=== PATIENT | male | born 1965 | race Caucasian/White ===

== ENCOUNTER 2025-01-04 10:25 | Inpatient (IN) | payer BC, OTHER ==
[~2025-01-04] VITALS: Ht 165.1 cm; Wt 113.2 kg
--- NOTE | 2025-01-04 10:47 | ECG ---
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
--- NOTE | 2025-01-04 10:49 | ED.PDOC ---
HPI Comments HPI: Poor Historian. HPI: 59y M who presents to the ED via EMS for chief complaint of chest pain. - pt states he has been having chest pain for the past 1 week getting progressively worse and came to the ED today for exacerbation of his pain - pt states he he has been having substernal chest pain, intermittent in nature radiating to the L arm, describing the pain as tingling, with noted exacerbation of his symptoms with exertion and no relieving factors - pt states he took 1x nitro at approx 0930 this AM and states it helped with his pain - pt states he has also been having shortness of breath which started earlier this AM with associated nausea, vomiting diaphoresis and headache but otherwise denies dizziness, fever, cough, chills, or associated symptoms - pt states he did have CA 1x years prior and takes daily ASA - pt states he saw psychological operations officer 1x year ago and states he had abnormal cardiac stress test but does not know if pt was diagnosed with anything - pt in the ED, has stable vitals in the ED with 02 sat of 100% on room air, and BP of 136/83, RR 20, Past Medical History: CA (2015), depression Past Surgical History: tonsillectomy Social History: Denies ETOH, denies smoking, denies drug use. Medications: nitroglycerin, aspirin, metformin, Zoloft Allergies: denies REVIEW OF SYSTEMS: CONSTITUTIONAL: Denies acute: fever, chills, HEAD: Denies acute: headache, photophobia Eyes: Denies acute: Double vision, vision loss, eye pain, eye discharge. EARS: Denies acute: tinnitus, hearing loss, ear discharge, ear pain, THROAT: Denies acute: sore throat, swelling, difficulty swallowing , pain with swallowing, change in voice. NECK: Denies acute: neck pain, neck swelling, stiff neck. HEART: Denies acute : palpitations, LUNGS: Denies acute: , wheezing, cough, hemoptysis ABDOMEN: Denies acute: abdominal pain, diarrhea, melena , hematemesis, hematochezia SKIN: Denies acute: rash, redness, lesions, itchiness. EXTREMITIES: Denies acute: calf pain, weakness, denies pain in extremity. Denies acute: Low back pain. Neuro: Denies acute: focal neurological deficit, motor or sensory focal neurological deficit, tremors, seizure like activity, confusion, dizziness, change in mental status, loss of bowel or bladder function, cauda equina like symptoms. : Denies acute: dysuria, hematuria, flank pain, increase in urinary frequency. PSYCH: Denies acute: hallucination, suicidal ideation, homicidal ideation. PHYSICAL EXAM: General: ---mild-----acute distress, awake and alert. Head: normocephalic, atraumatic. Neck: supple, trachea is midline, no swelling. Throat: Normal phonation. Eyes:, no erythema, no purulent discharge, no proptosis, no icterus. Heart: regular rate, regular rhythm, no significant murmur appreciated. Lungs: no apparent respiratory distress, Able to speak in full sentences. No wheezing, no rhonchi, no crackles. No stridors Clear to auscultation bilaterally. Abdomen: non tender to palpation, non distended, soft, no guarding, no rebound, + bowel sounds. Neuro: Awake, Alert, oriented to name, self, situation, follows commands GCS=15. Speech is normal. Skin: no petechia, no purpura, no cyanosis, non-pale, not jaundice. Lower extremities: --trace- Pitting edema no deformity, no focal swelling, no calf TTP. Makes eye contact. moves all four extremities. Face: no apparent facial droop. ED COURSE: DISCLAIMER: This medical document was created using an electronic medical record system with voice recognition software and computerized dictation system. Although this document has been carefully reviewed, there might still be some phonetic and typographical errors. Occasional wrong-word or "sound-alike" substitutions may have occurred due to the inherent limitations of voice recognition software. These areas are purely typographical due to imperfections of the software programs and do not reflect any compromise in the patient's medical care. Please read the chart carefully and recognize, using context, where these substitutions have occurred. Chief Complaint: Shortness of Breath Time Seen by MD: 10:49 Primary Care Provider: LILY Reviewed Notes: Medications, Allergies Allergies: Coded Allergies: NO KNOWN ALLERGIES (Unverified , 09/18/13) Home Meds Reported Medications Lisinopril (Lisinopril) 20 Mg Tab, 1 TAB PO DAILY 01/04/25 Information Source: Patient Mode of Arrival: Ambulatory Past Medical History PAST MEDICAL HISTORY: HTN Surgical History: Denies all surgeries Family History Family History: Unknown Social History Smoker: Quit Less Than 1 Year Alcohol: Denies ETOH Use Drugs: Denies Drug Use Lives In: Home EKG EKG : Pulse Rate (adult): 72 Marshall: Normal Cardiac Rhythm: NSR Block: None Hypertrophy: None ST: Nonsp Was a procedure done? Was a procedure done?: No X-Ray, Labs, Meds, VS Vital Signs Date Time Temp Pulse Resp B/P (MAP) Pulse Ox O2 Delivery O2 Flow Rate FiO2 01/04/25 11:15 72 01/04/25 10:59 98.1 79 20 136/83 (100) 100 98.1 01/04/25 10:45 72 Lab Test 01/04/25 12:00 01/04/25 11:05 Range/Units Lactic Acid Level 1.7 0.4-2.0 mmol/L Troponin I High Sensitivity 77 *H 54 </=54 ng/L White Blood Count 8.4 4.4-10.8 10^3/uL Red Blood Count 4.66 4.5-5.90 10^6/uL Hemoglobin 14.7 13.5-17.5 g/dL Hematocrit 43.3 41.0-53.0 % Mean Corpuscular Volume 93.0 80.0-100.0 fL Mean Corpuscular Hemoglobin 31.7 28.0-32.0 pg Mean Corpuscular Hemoglobin Concent 34.0 32.0-36.0 g/dL Red Cell Distribution Width 12.6 11.8-14.3 % Platelet Count 306 140-450 10^3/uL Mean Platelet Volume 7.2 6.9-10.8 fL Neutrophils (%) (Auto) 60.4 37.0-80.0 % Lymphocytes (%) (Auto) 29.8 10.0-50.0 % Monocytes (%) (Auto) 7.7 0.0-12.0 % Eosinophils (%) (Auto) 1.7 0.0-7.0 % Basophils (%) (Auto) 0.4 0.0-2.0 % Neutrophils # (Auto) 5.1 1.6-8.6 10 ^3/uL Lymphocytes # (Auto) 2.5 0.4-5.4 10 ^3/uL Monocytes # (Auto) 0.6 0-1.3 10 ^3/uL Eosinophils # (Auto) 0.1 0-0.8 10 ^3/uL Basophils # (Auto) 0 0-0.2 10 ^3/uL Nucleated Red Blood Cells 0.0 % Sodium Level 138 136-145 mmol/L Potassium Level 4.6 3.5-5.1 mmol/L Chloride Level 103 98-107 mmol/L Carbon Dioxide Level 25 20-31 mmol/L Anion Gap 10 5-15 Blood Urea Nitrogen 15 9-23 mg/dL Creatinine 0.67 L 0.700-1.30 mg/dL Glomerular Filtration Rate Calc 106 >90 mL/min BUN/Creatinine Ratio 22.4 H 10.0-20.0 Serum Glucose 100 74-106 mg/dL Hemoglobin A1c 5.8 H <5.7 % A1C Calcium Level 10.2 8.7-10.4 mg/dL Magnesium Level 1.8 1.6-2.6 mg/dL Total Bilirubin 0.5 0.2-1.0 mg/dL Aspartate Amino Transferase (AST) 33 13-40 U/L Alanine Aminotransferase (ALT) 51 H 7-40 U/L Alkaline Phosphatase 52 46-116 U/L B-Type Natriuretic Peptide 59.04 0-100 pg/mL Total Protein 6.9 5.7-8.2 g/dL Albumin 4.8 3.2-4.8 g/dL Thyroid Stimulating Hormone (TSH) 1.12 0.55-4.78 uIU/mL [place] [id number] Ph: [phone] DIAGNOSTIC IMAGING Diagnostic Imaging Report : [id number] Signed PATIENT: MARY JARRETT ACCT: [id number] UNIT: [id number] : 1965 LOC: ER ROOM / BED: / AGE / SEX: 59 / M ADM STATUS: REG ER SERVICE 1046 ORDERING PHYSICIAN: UCHE CELAYA DO PROCEDURE(s): CXRP - CHEST PORTABLE REASON: SOB/CP ORDER NUMBER(s): [id number], ACCESSION NUMBER(s): [id number] CHEST RADIOGRAPH Indication: SOB/CP Technique: Single frontal view of the chest was obtained COMPARISON: None FINDINGS: Lines and Tubes: None Lungs: Clear Pleura: No effusion. No pneumothorax. Cardiomediastinal contours: Unremarkable Bones: Unremarkable IMPRESSION: No acute disease. ATED BY: DEAN ROSS MD DICTATED DATE/TIME: 01/04/25 1144 SIGNED BY: DEAN ROSS MD SIGNED DATE/TIME: 01/04/25 1144 CC: Patient Education/Counseling: Diagnosis, Treatment Family Education/Counseling: No Family Present SEPSIS Sepsis Screen Physician Orders Electrocardigram (01/04/25 11:44) Electrocardigram (01/04/25 13:44) It Project Lead (01/04/25 ) Chest Portable (01/04/25 10:46) Vital Signs Date Time Temp Pulse Resp B/P (MAP) Pulse Ox O2 Delivery O2 Flow Rate FiO2 01/04/25 11:15 72 01/04/25 10:59 98.1 79 20 136/83 (100) 100 98.1 01/04/25 10:45 72 Laboratory Tests Test 01/04/25 11:05 01/04/25 12:00 White Blood Count 8.4 10^3/uL (4.4-10.8) Lactic Acid Level 1.7 mmol/L (0.4-2.0) Departure 1 Departure Time of Disposition: 11:57 Impression: Primary Impression: Chest pain Additional Impression: Dyspnea Disposition: 09 ADMITTED INPATIENT Admit to: [facility] Condition: Guarded Discharged With: Self Critical Care Note Critical Care Time?: No Heart Score Heart Score: Heart Score Response (Comments) Value History Slightly Suspicious 0 EKG Normal 0 Age 45-64 1 Risk Factors 1 or 2 risk factors 1 Total 2 I personally scribed for UCHE CELAYA DO ([email or web address]) on 01/04/25 at 10:49. Maris ctronically submitted by Santo Gottlieb (AFSHAN). I personally scribed for UCHE CELAYA DO ([email or web address]) on 01/04/25 at 11:15. Electronically submitted by Santo Gottlieb (AFSHAN). I personally scribed for UCHE CELAYA DO ([email or web address]) on 01/04/25 at 22:04. Electronically submitted by Santo Gottlieb ([facility] UCHE CELAYA DO Jan 04, 2025 10:49
[2025-01-04 11:38] LABS: Hematocrit 43.3 % (41.0-53.0); Hemoglobin 14.7 g/dL (13.5-17.5); Mean Corpuscular Hemoglobin 31.7 pg (28.0-32.0); Mean Corpuscular Volume 93.0 fL (80.0-100.0); Nucleated Red Blood Cells % 0.0 %
--- NOTE | 2025-01-04 11:46 | DVH ---
CHEST RADIOGRAPH Indication: SOB/CP Technique: Single frontal view of the chest was obtained COMPARISON: None FINDINGS: Lines and Tubes: None Lungs: Clear Pleura: No effusion. No pneumothorax. Cardiomediastinal contours: Unremarkable Bones: Unremarkable IMPRESSION: No acute disease.
[2025-01-04 11:52] LABS: Albumin 4.8 g/dL (3.2-4.8); Alkaline Phosphatase 52 U/L (46-116); Anion Gap 10 (5-15); BUN/Creatinine Ratio 22.4 (10.0-20.0); Bilirubin, Total 0.5 mg/dL (0.2-1.0); Blood Urea Nitrogen 15 mg/dL (9-23); Calcium 10.2 mg/dL (8.7-10.4); Carbon Dioxide 25 mmol/L (20-31); Chloride 103 mmol/L (98-107); Glucose 100 mg/dL (74-106); Potassium 4.6 mmol/L (3.5-5.1); Sodium 138 mmol/L (136-145); Total Protein 6.9 g/dL (5.7-8.2)
[2025-01-04 11:55] LABS: Alanine Aminotransferase 51 U/L (7-40)
[2025-01-04] MEDS ORDERED: LISI20TA56 PO (12:13)
[2025-01-04] MEDS ORDERED: ACETAMINOPHEN 325 MG TAB PO PRN (12:15)
[2025-01-04] MEDS ORDERED: NITROGLYCERIN 0.4 MG SL TAB SL PRN ×2 (12:15)
[2025-01-04] MEDS ORDERED: MORPHINE SULFATE INJ 2 MG/ml SYRG IV PRN (12:15)
[2025-01-04] MEDS ORDERED: MORPHINE SULFATE 4 MG/ML SYR/VIAL IV PRN (12:15)
[2025-01-04] MEDS ORDERED: ONDANSETRON HCL 4 MG/2 ML VIAL IV PRN (12:15)
--- NOTE | 2025-01-04 12:23 | DVHHP2 ---
History of Present Illness Reason for Visit: Chest pain with nausea vomiting jaw pain headache and diaphoresis History of Present Illness Kleber Medina is a 59-year-old male with past medical history of SD in 2015 status post PTCA x1, depression, tonsillectomy, nephritis, and morbid obesity who presents to the ED with chest pain that radiate to his left arm and jaw with nausea, vomiting, headache, and diaphoresis that started to worsen at 930 this morning. 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 He reports that the pain is currently 10/10 heavy and intermittent in nature and has been ongoing for the last 2 weeks. Patient's Isamar is at the chair side. She states that the last time this happened in 2014 his face was flushed red as it is now. Patient denies if there are any triggering or alleviating factors. Patient denies any recent travels, recent sick contacts, recent ingestion of spoiled fo od, recent trauma or injury, abdominal pain, diarrhea, urinary symptoms, lightheadedness, weakness, or dizziness. Patient reports that he is compliant with his medications. Cardiovascular: SD Psych: Depression Past Medical History Nephritis Past Surgical History: Other (PTCA x1 in 2015), Tonsillectomy Family History: Hyperlipidemia, Hypertension, Other (Dad with hypertension, hyperlipidemia, and SD. Mom with heart disease.) Smoke: No ALCOHOL: occassional Drugs: None Lives: with Family Domestic Violence: Neg Review of Systems Constitutional: Yes: Sweats, Other (Headache with jaw pain) Cardiovascular: Chest Pain Gastrointestinal: Nausea, Vomiting Allergies: Coded Allergies: NO KNOWN ALLERGIES (Unverified , 09/18/13) Medications Current Medications Medications Dose Ordered Sig/Jefferson Route Start Time Stop Time Status Last Admin Dose Admin Aspirin 81 mg DAILY PO 01/05/25 10:00 UNV Atorvastatin Calcium 40 mg HS PO 01/04/25 22:00 UNV Morphine Sulfate 2 mg Q30MP PRN IV 01/04/25 12:15 UNV Exam Vital Signs Vital Signs Date Time Temp Pulse Resp B/P (MAP) Pulse Ox O2 Delivery O2 Flow Rate FiO2 01/04/25 11:15 72 01/04/25 10:59 98.1 20 136/83 (100) 100 98.1 General Appearance: Alert, Oriented X3, Cooperative, No acute distress HEENT: Atraumatic, PERRLA, EOMI, Mucous membr. moist/pink Respiratory: Clear to auscultation, Normal air movement Cardiovascular: Regular rate, Normal S1, Normal S2, No murmurs Abdominal: Normal bowel sounds, Soft Extremities: Normal pulses Skin: No significant lesion Neuro: Normal speech, Strength at 5/5 X4 ext, Normal tone, Sensation intact Psych/Mental Status: Mental status NL, Mood NL Labs/Xrays Labs Test 01/04/25 12:00 01/04/25 11:05 Range/Units White Blood Count 8.4 4.4-10.8 10^3/uL Red Blood Count 4.66 4.5-5.90 10^6/uL Hemoglobin 14.7 13.5-17.5 g/dL Hematocrit 43.3 41.0-53.0 % Mean Corpuscular Volume 93.0 80.0-100.0 fL Mean Corpuscular Hemoglobin 31.7 28.0-32.0 pg Mean Corpuscular Hemoglobin Concent 34.0 32.0-36.0 g/dL Red Cell Distribution Width 12.6 11.8-14.3 % Platelet Count 306 140-450 10^3/uL Mean Platelet Volume 7.2 6.9-10.8 fL Neutrophils (%) (Auto) 60.4 37.0-80.0 % Lymphocytes (%) (Auto) 29.8 10.0-50.0 % Monocytes (%) (Auto) 7.7 0.0-12.0 % Eosinophils (%) (Auto) 1.7 0.0-7.0 % Basophils (%) (Auto) 0.4 0.0-2.0 % Neutrophils # (Auto) 5.1 1.6-8.6 10 ^3/uL Lymphocytes # (Auto) 2.5 0.4-5.4 10 ^3/uL Monocytes # (Auto) 0.6 0-1.3 10 ^3/uL Eosinophils # (Auto) 0.1 0-0.8 10 ^3/uL Basophils # (Auto) 0 0-0.2 10 ^3/uL Nucleated Red Blood Cells 0.0 % Sodium Level 138 136-145 mmol/L Potassium Level 4.6 3.5-5.1 mmol/L Chloride Level 103 98-107 mmol/L Carbon Dioxide Level 25 20-31 mmol/L Anion Gap 10 5-15 Blood Urea Nitrogen 15 9-23 mg/dL Creatinine 0.67 L 0.700-1.30 mg/dL Glomerular Filtration Rate Calc 106 >90 mL/min BUN/Creatinine Ratio 22.4 H 10.0-20.0 Serum Glucose 100 74-106 mg/dL Calcium Level 10.2 8.7-10.4 mg/dL Total Bilirubin 0.5 0.2-1.0 mg/dL Aspartate Amino Transferase (AST) 33 13-40 U/L Alanine Aminotransferase (ALT) 51 H 7-40 U/L Alkaline Phosphatase 52 46-116 U/L B-Type Natriuretic Peptide 59.04 0-100 pg/mL Total Protein 6.9 5.7-8.2 g/dL Albumin 4.8 3.2-4.8 g/dL CHEST RADIOGRAPH Indication: SOB/CP Technique: Single frontal view of the chest was obtained COMPARISON: None FINDINGS: Lines and Tubes: None Lungs: Clear Pleura: No effusion. No pneumothorax. Cardiomediastinal contours: Unremarkable Bones: Unremarkable IMPRESSION: No acute disease. SEPSIS Sepsis Screen Date sepsis recognized/suspect: Jan 04, 2025 Time Sepsis recognized/suspect: 103 Recent Procedure: No On Antibiotic Therapy: No Respiratory Rate >20: No Heart Rate >90: No Temp<36 C (96.8 F) or >38.3 C: No SBP <90 or MAP <65 mmHG: No New Acute Mental Status Change: No Is the patient on CPAP, BIPAP,: No Physician Orders Troponin-I Hs (01/04/25 13:44) Troponin-I Hs (01/04/25 11:44) Electrocardigram (01/04/25 11:44) Electrocardigram (01/04/25 13:44) Tufter Operator (01/04/25 ) Urinalysis (01/04/25 10:46) Lactic Acid W/ Reflex Order (01/04/25 10:46) Chest Portable (01/04/25 10:46) Admit (01/04/25 12:10) Code Status (01/04/25 12:10) Vital Signs .PER UNIT PROTOCOL (01/04/25 12:10) Tufter Operator (01/04/25 12:10) Cardiac Diet-2gna,Lofat,Lochol (01/04/25 Lunch) Aspirin Tablet (01/05/25 10:00) Atorvastatin (Lipitor) (01/04/25 22:00) Morphine Sulfate Injection (01/04/25 12:15) Acetaminophen Tablet (Tylenol Tablet) (01/04/25 12:15) Complete Blood Count (01/05/25 04:00) Basic Metabolic Panel (01/05/25 04:00) Magnesium (01/05/25 04:00) Lipid Panel (01/05/25 04:00) Echo 2d Mode Cardiac Dop (01/04/25 12:10) Nitroglycerin Sublingual (Ntrostat Subli (01/04/25 12:15) Ondansetron Hcl (Zofran) (01/04/25 12:15) Electrocardigram (01/05/25 04:00) Troponin-I Hs (01/04/25 12:10) Cardiac Rehabilitation - Outpa (01/04/25 ) Nitroglycerin Sublingual (Ntrostat Subli (01/04/25 12:15) Morphine Sulfate Injection (01/04/25 12:15) Stat Ekg For Chest Pain (01/04/25 12:10) Notify Md Of Changes From Base (01/04/25 12:10) Exhibit Artist For 24 Hours (01/04/25 12:10) Emergency Dysrhythmia Protocol (01/04/25 12:10) Rhythm Strips Once Every Shift (01/04/25 12:10) Oxygen By Nasal Cannula (01/04/25 12:10) Hemoglobin A1c (01/04/25 12:10) * Cardiology Consult (01/04/25 12:10) Thyroid Stimulating Hormone (01/04/25 12:10) Free T4 (Free Thyroxine) (01/04/25 12:10) Urinalysis (01/04/25 12:10) Drug Screen (01/04/25 12:10) Magnesium Sarmad (01/04/25 12:15) Magnesium (01/04/25 12:10) Lisinopril Tablet (Zestril Tablet) (01/05/25 10:00) Vital Signs Date Time Temp Pulse Resp B/P (MAP) Pulse Ox O2 Delivery O2 Flow Rate FiO2 01/04/25 11:15 72 01/04/25 10:59 98.1 79 20 136/83 (100) 100 98.1 01/04/25 10:45 72 Laboratory Tests Test 01/04/25 11:05 01/04/25 12:00 White Blood Count 8.4 10^3/uL (4.4-10.8) Lactic Acid Level Pending Assessment/Plan Assessment/Plan Assessment Chest pain rule out ACS Alcohol use Morbid obesity History of SD in 2015 status post PTCA x1 History of depression History of tonsillectomy History of nephritis Plan Admit to tele Antiemetics Pain management Aspirin + statin Lactic level Troponin noted EKG BNP Chest x-ray Replete lytes Mag level Echo ordered TSH A1c Lipid panel UA UDS Free T4 Diet Home medications reconciled DVT prophylaxis-not indicated patient ambulating PUD prophylaxis-not indicated patient has a history of GERD or GI bleed Discussed plan of care with patient, patient's spouse, and nurse Cardiology consulted due to the history of a stent being placed and current symptoms Counseled patient on lifestyle modifications, diet, and exercise Counseled patient on cessation of alcohol use [id number] Preventive counseling healthy eating habits, physical activity, and regular checkups Plan discussed with: Patient, Spouse My Orders Orders - JOCELYNE REYNA Procedure Category Date Status Time Admit ADMIT 01/04/25 Transmitted 12:10 Code Status CODE 01/04/25 Transmitted 12:10 Vital Signs CARMEN 01/04/25 In Process 12:10 Tufter Operator CARMEN 01/04/25 In Process 12:10 Cardiac DIET 01/04/25 Transmitted Diet-2gna,Lofat,Lochol Lunch Aspirin Tablet PHA 01/05/25 Logged 10:00 Atorvastatin (Lipitor) PHA 01/04/25 Logged 22:00 Morphine Sulfate PHA 01/04/25 Logged Injection 12:15 Acetaminophen Tablet PHA 01/04/25 Transmitted (Tylenol Tablet) 12:15 Complete Blood Count LAB 01/05/25 Verified 04:00 Basic Metabolic Panel LAB 01/05/25 Verified 04:00 Magnesium LAB 01/05/25 Verified 04:00 Lipid Panel LAB 01/05/25 Verified 04:00 Echo 2d Mode Cardiac US 01/04/25 Logged DOP 12:10 Nitroglycerin PHA 01/04/25 Transmitted Sublingual (Ntrostat 12:15 Ondansetron Hcl PHA 01/04/25 Transmitted (Zofran) 12:15 Electrocardigram EKG 01/05/25 Logged 04:00 Troponin-I Hs LAB 01/04/25 Logged 12:10 Cardiac CARMEN 01/04/25 In Process Rehabilitation - Outpa Nitroglycerin PHA 01/04/25 Transmitted Sublingual (Ntrostat 12:15 Morphine Sulfate PHA 01/04/25 Transmitted Injection 12:15 Stat Ekg For Chest [facility] 01/04/25 In Process Pain 12:10 Notify Md Of Changes [facility] 01/04/25 In Process From Base 12:10 Exhibit Artist For [facility] 01/04/25 In Process 24 Hours 12:10 Emergency Dysrhythmia [facility] 01/04/25 In Process Protocol 12:10 Rhythm Strips Once [facility] 01/04/25 In Process Every Shift 12:10 Oxygen By Nasal RT 01/04/25 Transmitted Cannula 12:10 Hemoglobin A1c LAB 01/04/25 Logged 12:10 * Cardiology Consult CONS 01/04/25 Transmitted 12:10 Thyroid Stimulating LAB 01/04/25 Logged Hormone 12:10 Free T4 (Free LAB 01/04/25 Logged Thyroxine) 12:10 Urinalysis LAB 01/04/25 Logged 12:10 Drug Screen LAB 01/04/25 Logged 12:10 Magnesium Sarmad PHA 01/04/25 Transmitted 12:15 Magnesium LAB 01/04/25 Logged 12:10 Lisinopril Tablet PHA 01/05/25 Verified (Zestril Tablet) 10:00 Date of Service: Jan 04, 2025 Billing Provider: JOCELYNE REYNA Common Visit Codes: [id number] INP/OBS CARE (HIGH) Secondary Visit Codes: [id number] COUNSELING IND JOCELYNE REYNA Jan 04, 2025 12:23
[2025-01-04] MEDS: ASPirin-EC 325mg tab PO ONE (14:38)
[2025-01-04 14:42] VITALS: PULSE 83; RESP 20; O2SAT 95
[2025-01-04 15:35] VITALS: BP 127/75; PULSE 73; RESP 17; TEMP 98.3; O2SAT 96
[2025-01-04] MEDS: MAGNESIUM SULFATE 1GM/100ML 100 ML IV ONE (16:13)
--- NOTE | 2025-01-04 16:14 | DVHINCON2 ---
Date Seen: Jan 04, 2025 Referring Physician Rosy Reason for Consultation Chest Pain, Positive Troponin History of Present Illness 59-year-old male with PMH for diabetes, HTN, HLD, CAD s/p stent in 2014, presents to the hospital with chest pain. Patient has been having angina for the last 2 weeks, with intermittent chest pain, jaw pain, left arm pain, sharp in nature, intermittent, worsens with exertion, relieves once resting. 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 Patient has not had significant cardiac workup or follow up with a sales training manager in some time. Patient found to have troponins trending 54, 77, 92. EKG reviewed and shows sinus rhythm at 72 beats per minute, no significant ST and T-wave abnormality noted. Past Medical History As stated above Past Surgical History As stated above Family History Denies pertinent family cardiac history Social History Denies tobacco, illicit drug use, patient does endorse occasional alcoholic beverages. Allergies: Coded Allergies: NO KNOWN ALLERGIES (Unverified , 09/18/13) Home Meds Reported Medications Lisinopril (Lisinopril) 20 Mg Tab, 1 TAB PO DAILY 01/04/25 Current Medications Current Medications Medications (Trade) Dose Ordered Sig/Jefferson Route PRN Reason Start Time Stop Time Status Last Admin Aspirin 81 mg DAILY PO 01/04/25 12:18 Atorvastatin Calcium (Lipitor) 40 mg HS PO 01/04/25 22:00 Morphine Sulfate 2 mg Q30MP PRN IV FOR CHEST PAIN 01/04/25 12:15 Acetaminophen (Tylenol Tablet) 650 mg Q6HP PRN PO MILD PAIN (1-3 PAIN SCALE) 01/04/25 12:15 Nitroglycerin (Ntrostat Sublingual) 0.4 mg Q5MINP PRN SL FOR CHEST PAIN 01/04/25 12:15 Ondansetron HCl (Zofran) 4 mg Q4HP PRN IV NAUSEA / VOMITING 01/04/25 12:15 Nitroglycerin (Ntrostat Sublingual) 0.4 mg Q5MINP PRN SL FOR CHEST PAIN 01/04/25 12:15 01/04/25 12:19 DC Morphine Sulfate 2 mg Q30M PRN IV FOR CHEST PAIN 01/04/25 12:15 01/04/25 12:19 DC Lisinopril (Zestril Tablet) 20 mg DAILY PO 01/05/25 10:00 Review of Systems Constitutional: No: Fever, Chills, Sweats, Weakness, Malaise, Other Eyes: No: Pain, Vision change, Conjunctivae inflammation, Eyelid inflammation, Other, Redness ENT: No: Ear pain, Ear discharge, Nose pain, Nose discharge, Nose congestion, Mouth pain, Mouth swelling, Throat pain, Throat swelling, Other Respiratory: No: Cough, Dry, Shortness of breath, SOB with exertion, Wheezing, Hemoptysis, Pleuritic Pain, Sputum, Wheezing, Other Cardiovascular: ; No: Chest Pain Palpitations, Orthopnea, Paroxysmal Noc. Dyspnea, Edema, Lt Headedness, Other Gastrointestinal: No: Nausea, Vomiting, Abdominal Pain, Diarrhea, Constipation, Melena, Hematochezia, Other Genitourinary: No Dysuria, No Frequency, No Incontinence, No Hematuria, No Retention, No Other Musculoskeletal: neck pain; No: other, shoulder pain, arm pain, back pain, hand pain, leg pain, foot pain Skin: No: Rash, Lesions, Jaundice, Bruising, Other Neurological: Other (Dizziness, headache.); No: Weakness, Numbness, Incoordination, Change in speech, Confusion, Seizures Vital Signs Vital Signs Date Time Temp Pulse Resp B/P (MAP) Pulse Ox O2 Delivery O2 Flow Rate FiO2 01/04/25 14:42 83 20 95 Room Air* 0 21 01/04/25 14:42 98.3 142/79 (100) 98.3 Physical Exam General appearance: Patient is well-developed, well-nourished, in no acute distress. HEENT: Exam shows: Normocephalic, atraumatic, PERRLA, EOMI Neck: Supple, no bruits Chest: Equal chest excursion bilaterally. Breath sounds normal-no rales or wheezes. Heart: Rhythm: Regular rate; no murmur or gallop Abdomen: Exam shows: Soft, nontender, distended Musculoskeletal: No clubbing, no cyanosis, trace lower extremity edema Dermatology: Skin warm, moist. Neurological: Exam shows: Alert and oriented x4, normal speech Available prior records, labs, EKG, rhythm strips reviewed and interpreted Labs/Diagnostic Data Labs Test 01/04/25 12:56 01/04/25 12:52 01/04/25 12:00 01/04/25 11:05 Range/Units Troponin I High Sensitivity 92 *H </=54 ng/L Lactic Acid Level 1.7 0.4-2.0 mmol/L White Blood Count 8.4 4.4-10.8 10^3/uL Red Blood Count 4.66 4.5-5.90 10^6/uL Hemoglobin 14.7 13.5-17.5 g/dL Hematocrit 43.3 41.0-53.0 % Mean Corpuscular Volume 93.0 80.0-100.0 fL Mean Corpuscular Hemoglobin 31.7 28.0-32.0 pg Mean Corpuscular Hemoglobin Concent 34.0 32.0-36.0 g/dL Red Cell Distribution Width 12.6 11.8-14.3 % Platelet Count 306 140-450 10^3/uL Mean Platelet Volume 7.2 6.9-10.8 fL Neutrophils (%) (Auto) 60.4 37.0-80.0 % Lymphocytes (%) (Auto) 29.8 10.0-50.0 % Monocytes (%) (Auto) 7.7 0.0-12.0 % Eosinophils (%) (Auto) 1.7 0.0-7.0 % Basophils (%) (Auto) 0.4 0.0-2.0 % Neutrophils # (Auto) 5.1 1.6-8.6 10 ^3/uL Lymphocytes # (Auto) 2.5 0.4-5.4 10 ^3/uL Monocytes # (Auto) 0.6 0-1.3 10 ^3/uL Eosinophils # (Auto) 0.1 0-0.8 10 ^3/uL Basophils # (Auto) 0 0-0.2 10 ^3/uL Nucleated Red Blood Cells 0.0 % Sodium Level 138 136-145 mmol/L Potassium Level 4.6 3.5-5.1 mmol/L Chloride Level 103 98-107 mmol/L Carbon Dioxide Level 25 20-31 mmol/L Anion Gap 10 5-15 Blood Urea Nitrogen 15 9-23 mg/dL Creatinine 0.67 L 0.700-1.30 mg/dL Glomerular Filtration Rate Calc 106 >90 mL/min BUN/Creatinine Ratio 22.4 H 10.0-20.0 Serum Glucose 100 74-106 mg/dL Hemoglobin A1c 5.8 H <5.7 % A1C Calcium Level 10.2 8.7-10.4 mg/dL Magnesium Level 1.8 1.6-2.6 mg/dL Total Bilirubin 0.5 0.2-1.0 mg/dL Aspartate Amino Transferase (AST) 33 13-40 U/L Alanine Aminotransferase (ALT) 51 H 7-40 U/L Alkaline Phosphatase 52 46-116 U/L B-Type Natriuretic Peptide 59.04 0-100 pg/mL Total Protein 6.9 5.7-8.2 g/dL Albumin 4.8 3.2-4.8 g/dL Thyroid Stimulating Hormone (TSH) 1.12 0.55-4.78 uIU/mL Assessment * Chest Pain, Milldy Elevated Troponin - Continue trending. On asprin and statin. Classic symptomatic angina. Recommend Coronary angiogram, Plan for Monday. Follow up ECHO. * HTN - Continue lisinopril, titrate as tolerated. * HLD - statin * CAD S/P Stent 2014 - Continue aspirin and statin * Diabetes - Management per primary team Case Discussed with Dr Claire. Continue trending troponin. Follow up ECHO. Recommend cardiac catheterization +/- PCI. All risks, benefits, and alternatives of cardiac catheterization explained to the patient including the risk of stroke, [place], , coronary perforation, pericardial tamponade, contrast induced nephropathy, need for emergent CABG, mechanical support, mechanical ventilation, and bleeding from vascular complications from the procedure. Patient is agreeable to proceed with procedure. We will plan for Monday, NPO midnight Monday night. Critical care, time spent: 40 minutes This medical document was created using an electronic medical record system with voice recognition software and computerized dictation system. Although this document has been carefully reviewed, there might still be some phonetic and typographical errors. Occasional wrong-word or ``sound-alike substitutions may have occurred due to the inherent limitations of voice recognition software. These areas are purely typographical due to imperfections of the software programs and do not reflect any compromise in the patient's medical care. Please read the chart carefully and recognize, using context, where these substitutions have occurred. Thank you for allowing me to participate in the management of this patient. The treatment plan was discussed with and agreed upon by patient/family including requesting consultants and ordering of imaging/procedures. Plan discussed with: Patient, Spouse NYHA Physical activity limitations: Class3(Marked) ordinary Date of Service: Jan 04, 2025 Billing Provider: IMELDA BENSON Cardiology Common Codes: [id number] INP/OBS CARE (High), [id number] CARE 30-74 MIN IMELDA BENSON Jan 04, 2025 16:14
[2025-01-04 16:18] VITALS: PULSE 73; RESP 17; O2SAT 0
[2025-01-04 17:48] VITALS: BP 127/75; PULSE 73; RESP 17; TEMP 98.3; O2SAT 96
--- NOTE | 2025-01-04 18:00 | DVHSR ---
APPROVED REPORT EXAM: Two-dimensional and M-mode echocardiogram with Doppler and color Doppler. Blood Pressure: 136/83 mmHg INDICATION Chest Pain RISK FACTORS Obesity: Height: 5'5", Weight: 249 DIMENSIONS LVDd5.1 (3.8-5.7cm)LA (2D)4.1 (1.9-4.0cm)Aortic Root3.6 (2.0-3.7cm) LVDs3.5 (2.5-4.0cm)LA (MM) (1.9-4.0cm)Aortic Cusp Exc1.4 (1.5-2.0cm) EF (%) 60.0 (55-70%)Rt. Atrium4.0 (1.9-4.0cm)Asc. Aorta cm IVSd1.2 (0.7-1.1cm)RV (D) (1.8-2.4cm) PWd1.4 (0.7-1.1cm) Mitral Valve MitralMitral Stenosis E wave0.93m/sMV Mean GR.mmHg A wave0.71m/sMV Peak GR.mmHg E/A ratio1.32D MVAcm2 DECEL [id number] 1/2 Timems Aortic Valve Aortic ValveAortic Stenosis V11.29m/Marcel Mean GR.14mmHg V22.68m/Marcel Peak GR.29mmHg LVOT Diameter1.9 (1.8-2.4cm)Doppler AVA1.36cm2 Pulmonic Valve V21.62m/s Other Information Quality : LimitedRhythm : Technically limited study due to body habitus. Conclusion Left ventricle: Left ventricle was normal-sized. Concentric left ventricular hypertrophy was seen. LVEF was 60-65%. There was no gross wall motion abnormality. Diastolic function was considered nor mal Right ventricle was normal-sized with normal systolic function. Both atria were normal-sized. Aortic valve was not well visualized. There was no aortic insufficiency/stenosis. There was no mitr al regurgitation. There was trace tricuspid regurgitation. Pulmonary valve was not well visualized. As there was no good tricuspid regurgitation jet, right ventricular systolic pressure could not be es timated. There was no pericardial effusion. There was no echocardiographic evidence for pulmonary hypertension.
[2025-01-04 20:00] VITALS: PULSE 68; PULSE 76; RESP 18; O2SAT 96
[2025-01-04 21:00] VITALS: BP 125/70; PULSE 68; RESP 18; TEMP 97.5; O2SAT 96
[2025-01-04] MEDS: ATORVASTATIN 20 MG TAB PO SCH (22:14)
[2025-01-04] MEDS: ENOXAPARIN SOD 100 MG/1 ML SYRINGE SC ONE (22:16)
[2025-01-05] VITALS (8 sets, daily range): BP systolic 108–138; BP diastolic 66–82; PULSE 6–100; RESP 17–18; TEMP 97.2–98.3; O2SAT 94–97
[2025-01-05 07:05] LABS: Hematocrit 43.7 % (41.0-53.0); Hemoglobin 15.2 g/dL (13.5-17.5); Mean Corpuscular Hemoglobin 32.4 pg (28.0-32.0); Mean Corpuscular Volume 93.0 fL (80.0-100.0); Nucleated Red Blood Cells % 0.2 %
[2025-01-05 07:23] LABS: Anion Gap 9 (5-15); Calcium 10.3 mg/dL (8.7-10.4); Carbon Dioxide 26 mmol/L (20-31); Chloride 103 mmol/L (98-107); Potassium 4.4 mmol/L (3.5-5.1); Sodium 138 mmol/L (136-145)
[2025-01-05 07:28] LABS: Glucose 102 mg/dL (74-106)
[2025-01-05 07:30] LABS: Blood Urea Nitrogen 13 mg/dL (9-23); Magnesium 2.1 mg/dL (1.6-2.6); Triglycerides 471 mg/dL (< 150)
[2025-01-05 07:31] LABS: Cholesterol 147 mg/dL (< 200)
[2025-01-05 07:34] LABS: BUN/Creatinine Ratio 20.3 (10.0-20.0)
[2025-01-05 07:35] LABS: HDL Cholesterol 28 mg/dL (40-59)
[2025-01-05] MEDS: LISINOPRIL 20 MG TAB PO SCH (09:55)
[2025-01-05] MEDS: ENOXAPARIN SOD 120 MG/0.8 ML SYRINGE SC SCH (09:57)
[2025-01-05] MEDS ORDERED: ENOXAPARIN SOD 100 MG/1 ML SYRINGE SC SCH (10:00)
--- NOTE | 2025-01-05 12:25 | DVHPN2 ---
Consult Progress Note Subjective Patient reports: No new complaints Objective vital signs Vital Sign Date Time Temp Pulse Resp B/P (MAP) Pulse Ox O2 Delivery O2 Flow Rate FiO2 01/05/25 09:55 133/81 01/05/25 09:11 98.2 59 17 96 98.2 01/05/25 08:10 Room Air* 0 21 Total Intake and Output 01/04/25 01/04/25 01/05/25 15:00 23:00 07:00 Intake Total 0 ml 900 ml Balance 0 ml 900 ml medications Current Medications Medications Dose Ordered Sig/Jeff[place] Route Start Time Stop Time Status Last Admin Dose Admin Aspirin 81 mg DAILY PO 01/04/25 12:18 01/05/25 09:57 81 MG Atorvastatin Calcium 40 mg HS PO 01/04/25 22:00 01/04/25 22:14 40 MG Morphine Sulfate 2 mg Q30MP PRN IV 01/04/25 12:15 Acetaminophen 650 mg Q6HP PRN PO 01/04/25 12:15 Nitroglycerin 0.4 mg Q5MINP PRN SL 01/04/25 12:15 Ondansetron HCl 4 mg Q4HP PRN IV 01/04/25 12:15 Lisinopril 20 mg DAILY PO 01/05/25 10:00 01/05/25 09:55 20 MG Enoxaparin Sodium 1 mg BID SC 01/05/25 10:00 UNV Enoxaparin Sodium 110 mg BID SC 01/05/25 10:00 01/05/25 09:57 110 MG Examination: CVS:Normal (Telemetry consistent with normal sinus rhythm at 71 beats per minute.) laboratory and microbiology Laboratory Tests 01/05/25 06:02 Test 01/05/25 06:02 Range/Units Serum Glucose 102 74-106 mg/dL Problem List/Assessment/Plan Problem List/Assessment/Plan Assessment * Chest Pain, Milldy Elevated Troponin - Continue trending. On asprin and statin. Classic symptomatic angina. Recommend Coronary angiogram, Plan for tomorrow a.m., NPO after midnight. Normal EF on echo.. * HTN - Continue lisinopril, titrate as tolerated. * HLD - statin * CAD S/P Stent 2014 - Continue aspirin and statin * Diabetes - Management per primary team Case Discussed with Dr Claire. Continue trending troponin. Follow up ECHO. Recommend cardiac catheterization +/- PCI. All risks, benefits, and alternatives of cardiac catheterization explained to the patient including the risk of stroke, [place], , coronary perforation, pericardial tamponade, contrast induced nephropathy, need for emergent CABG, mechanical support, mechanical ventilation, and bleeding from vascular complications from the procedure. Patient is agreeable to proceed with procedure. We will plan for tomorrow morning, NPO after midnight. Critical care, time spent: 40 minutes This medical document was created using an electronic medical record system with voice recognition software and computerized dictation system. Although this document has been carefully reviewed, there might still be some phonetic and typographical errors. Occasional wrong-word or ``sound-alike substitutions may have occurred due to the inherent limitations of voice recognition software. These areas are purely typographical due to imperfections of the software programs and do not reflect any compromise in the patient's medical care. Please read the chart carefully and recognize, using context, where these substitutions have occurred. Thank you for allowing me to participate in the management of this patient. The treatment plan was discussed with and agreed upon by patient/family including requesting consultants and ordering of imaging/procedures. Plan discussed with: Patient Date of Service: Jan 05, 2025 Billing Provider: IMELDA BENSON Common Visit Codes: [id number] INP/OBS CARE(HIGH) IMELDA BENSON Jan 05, 2025 12:25
--- NOTE | 2025-01-05 14:57 | DVHPN2 ---
Subjective The patient is seen and examined at bedside. Still have chest discomfort. Waiting for cardiac catheterization. Reviewed: Care Plan, H&P, Labs, Medications, Previous Orders, Radiology Changes from previous H/P or p: No Changes Cardiovascular: Chest Pain Gastrointestinal: Nausea, Vomiting Objective Vitals Vital Signs Date Time Temp Pulse Resp B/P (MAP) Pulse Ox O2 Delivery O2 Flow Rate FiO2 01/05/25 14:05 98.3 100 17 114/82 (93) 96 98.3 01/05/25 08:10 Room Air* 0 21 Intake/Output Intake and Output 01/05/25 07:00 Intake Total 900 ml Balance 900 ml Intake Oral 900 ml # Voids 4 General Appearance: Alert, Oriented X3, Cooperative, No acute distress HEENT: Atraumatic, EOMI, Mucous membr. moist/pink Neck: Supple Cardiovascular: Regular rate, Normal S1, Normal S2, No murmurs, Gallops, Rubs Abdomen: Normal bowel sounds, Soft, No tenderness Neuro: Cranial nerves 3-12 NL Psych/Mental Status: Mental status NL Medications Current Medications Medications Dose Ordered Sig/Jeff[place] Route Start Time Stop Time Status Last Admin Dose Admin Aspirin 81 mg DAILY PO 01/04/25 12:18 01/05/25 09:57 81 MG Atorvastatin Calcium 40 mg HS PO 01/04/25 22:00 01/04/25 22:14 40 MG Morphine Sulfate 2 mg Q30MP PRN IV 01/04/25 12:15 Acetaminophen 650 mg Q6HP PRN PO 01/04/25 12:15 Nitroglycerin 0.4 mg Q5MINP PRN SL 01/04/25 12:15 Ondansetron HCl 4 mg Q4HP PRN IV 01/04/25 12:15 Lisinopril 20 mg DAILY PO 01/05/25 10:00 01/05/25 09:55 20 MG Enoxaparin Sodium 1 mg BID SC 01/05/25 10:00 UNV Enoxaparin Sodium 110 mg BID SC 01/05/25 10:00 01/05/25 09:57 110 MG Laboratory Results Laboratory Tests 01/05/25 06:02 Chemistry Test 01/05/25 06:02 Calcium Level 10.3 mg/dL (8.7-10.4) Magnesium Level 2.1 mg/dL (1.6-2.6) Lipid panel Test 01/05/25 06:02 Cholesterol Level 147 mg/dL (< 200) HDL Cholesterol 28 mg/dL (40-59) L Triglycerides Level 471 mg/dL (< 150) H Labs and/or images reviewed: Labs reviewed by me Assessment/Plan Assessment/Plan Chest pain rule out ACS Alcohol use Morbid obesity History of DE in 2015 status post PTCA x1 History of depression History of tonsillectomy History of nephritis Continuing current management. Waiting for cardiac catheterization to be done. Continuing with IV morphine and [place] for pain control. This medical document was created using an electronic medical record system with MTherative direct computerized dictation system. Although this document has been carefully reviewed, there may still be some phonetic and typographical errors. These areas are purely typographical due to imperfections of the software programs, and do not reflect any compromise in the patient's medical care. Plan discussed with: Patient Date of Service: Jan 05, 2025 Billing Provider: BHARAT ABRAHAM MD Common Visit Codes: [id number] INP/OBS CARE(HIGH) BHARAT ABRAHAM MD Jan 05, 2025 14:57
[2025-01-06] VITALS (11 sets, daily range): BP systolic 120–153; BP diastolic 64–98; PULSE 55–86; RESP 13–20; TEMP 97.2–98.1; O2SAT 93–96
[2025-01-06 03:07] LABS: INR 0.98 (0.9-1.15); Partial Thromboplastin Time 28.3 SEC (24.5-34.5); Prothrombin Time 10.4 sec (9.3-11.8)
[2025-01-06] MEDS: IODIXANOL 320MG/ML 100ML BTL IV ONE ×2 (07:32→08:22)
[2025-01-06] MEDS: HEPARIN SODIUM (PORCINE) 5000 UNITS/ML 1ML VIAL ONE (07:53)
[2025-01-06] MEDS: VERAPAMIL 2.5MG/ML INJ 2ML VIAL IV ONE (07:53)
[2025-01-06] MEDS: ANGIOMAX 250 MG VIAL IV ONE (07:53)
[2025-01-06] MEDS: fentaNYL CITRATE 100 MCG/2 ML VL ONE (07:53)
[2025-01-06] MEDS: LIDOCAINE 2%HCL (LOCAL ANESTH.) INJ 20ML MDV ONE (07:54)
[2025-01-06] MEDS: SODIUM CHL 0.9% 50 ML ONE (07:54)
[2025-01-06] MEDS: MIDAZOLAM HCL 2MG/2ML 2ml VIAL (1mg/ml) ONE (07:54)
--- NOTE | 2025-01-06 09:31 | DVHOP2 ---
Operative Report Procedures performed: Left heart catheterization and bilateral coronary angiogram IVUS of LAD Moderate sedation lasting more than 30 minutes Diagnosis: Multivessel coronary artery disease including ostial LAD/ostial LCx Preserved left ventricular systolic function (60%) Cardiac suggestion for management: Cardiothoracic surgery consultation and transfer to high level of care for bypass surgery Optimized medical therapy Lifestyle and risk factor modifications Findings: LVEF: 60% LVEDP: 14 mm Hg There was no transaortic valve pressure gradient Left main: Left main was coming off the left sinus of Valsalva. No significant lesion in the left main LAD: LAD was coming off the left main. There was a stent in proximal to mid LAD with up to 75% in-stent stenosis. Ostial LAD had 75% lesion. IVUS of LAD was performed and revealed MLA of ostial LAD was 3.5 mm (considered significant). There was 90% lesion in apical portion of LAD. 1st diagonal was small-sized vessel with no significant disease. D2 was large vessel with mild diffuse disease. Ramus intermedius was a small to medium-sized vessel which came off the left main. It had mild disease. LCX: LCX was coming off the left main it was a large vessel. It had a 95% ostial lesion. RCA: RCA was coming off the right sinus of Valsalva. It was a dominant vessel and provided RPDA. Mid RCA had 75% disease. Presentation: Patient is a 59-year-old gentleman who presented with worsening chest discomfort radiating to jaws and arm for few weeks. Past medical history included diabetes mellitus, obesity, hypertension, and hyperlipidemia. He has had cardiac stent (in LAD) in 2015. His high sensitive troponin peaked at 92. His echocardiogram revealed preserved left ventricular systolic function and no significant valvular disease. With diagnosis of unstable angina/non-STEMI, the patient was sent for cardiac catheterization. Procedure: After obtaining informed consent, the patient was brought to the laborer stores. He was prepped and draped in sterile fashion. Right radial artery was used for access site. 1 mg of Versed and 50 mcg of fentanyl were used for moderate sedation. Using Seldinger technique, the right radial artery was accessed and a 6 Malagasy slender sheath was inserted into it. 2.5 mg of verapamil and 200 mcg of nitroglycerin were given as a cocktail into right radial sheath. 5000 units of heparin was given peripherally. Five Malagasy tiger 4 diagnostic catheter was used to perform left heart catheterization (obtaining pressures and performing left ventriculography) and bilateral coronary angiography. We did recognize the significant ostial LCX disease. We also saw the disease in the ostial LAD. Decision was made to proceed with performing IVUS of the LAD to verify the significance of the ostial LAD lesion. Patient was started on Angiomax. A 6 Malagasy 3.5 EBU guiding catheter was used to access the left coronary system. Run-through wire was used to cross the lesion into the LAD. IVUS was performed which revealed MLA of 3.5 mm of the ostial LAD (was calcified throughout). Decision was made to end the study and ask for Card [facility] surgery evaluation for bypass surgery (needs transferred to high level of care?). Patient tolerated the procedure with no complication. Hemodynamically the patient was stable with no chest discomfort. Total bleeding was less than 5 mL. There was no dissection/hematoma/perforation. Right radial artery access site was managed by deploying a TR band. Fluoroscopy time: 9.6 minutes contrast: 120 mL of SATYA Reagan MD Jan 06, 2025 09:31
--- NOTE | 2025-01-06 11:56 | DVHPN2 ---
Cardiovascular: Chest Pain Gastrointestinal: Nausea, Vomiting Objective Vitals Vital Signs Date Time Temp Pulse Resp B/P (MAP) Pulse Ox O2 Delivery O2 Flow Rate FiO2 01/06/25 10:36 133/64 01/06/25 09:56 60 13 96 01/06/25 05:00 98.1 98.1 01/05/25 20:00 Room Air* 0 21 Intake/Output Intake and Output 01/06/25 07:00 Intake Total 1625 ml Balance 1625 ml Intake Oral 1625 ml # Voids 6 Medications Current Medications Medications Dose Ordered Sig/[place] Route Start Time Stop Time Status Last Admin Dose Admin Aspirin 81 mg DAILY PO 01/04/25 12:18 01/06/25 10:36 81 MG Atorvastatin Calcium 40 mg HS PO 01/04/25 22:00 01/05/25 21:20 40 MG Morphine Sulfate 2 mg Q30MP PRN IV 01/04/25 12:15 Acetaminophen 650 mg Q6HP PRN PO 01/04/25 12:15 Nitroglycerin 0.4 mg Q5MINP PRN SL 01/04/25 12:15 Ondansetron HCl 4 mg Q4HP PRN IV 01/04/25 12:15 Lisinopril 20 mg DAILY PO 01/05/25 10:00 01/06/25 10:36 20 MG Enoxaparin Sodium 1 mg BID SC 01/05/25 10:00 UNV Enoxaparin Sodium 110 mg BID SC 01/05/25 10:00 01/05/25 21:22 110 MG Laboratory Results Laboratory Tests 01/05/25 06:02 Coagulation Test 01/06/25 02:12 Prothrombin Time 10.4 sec (9.3-11.8) Prothrombin Time INR 0.98 (0.9-1.15) Activated Partial Thromboplast Time 28.3 SEC (24.5-34.5) BHARAT ABRAHAM MD Jan 06, 2025 11:56
--- NOTE | 2025-01-06 17:44 | DVHDS2 ---
Discharge Summary Date of Admission Jan 04, 2025 at 12:10 Date of Discharge: Jan 06, 2025 Admitting Diagnosis Chest pain rule out ACS Alcohol use Morbid obesity History of RI in 2015 status post PTCA x1 History of depression History of tonsillectomy History of nephritis Labs/Diagnostic Data: Laboratory Results Test 01/06/25 02:12 01/05/25 06:02 01/04/25 12:56 01/04/25 12:00 Prothrombin Time 10.4 sec (9.3-11.8) Prothrombin Time INR 0.98 (0.9-1.15) Activated Partial Thromboplast Time 28.3 SEC (24.5-34.5) White Blood Count 7.7 10^3/uL (4.4-10.8) Red Blood Count 4.70 10^6/uL (4.5-5.90) Hemoglobin 15.2 g/dL (13.5-17.5) Hematocrit 43.7 % (41.0-53.0) Mean Corpuscular Volume 93.0 fL (80.0-100.0) Mean Corpuscular Hemoglobin 32.4 pg (28.0-32.0) Mean Corpuscular Hemoglobin Concent 34.8 g/dL (32.0-36.0) Red Cell Distribution Width 12.6 % (11.8-14.3) Platelet Count 277 10^3/uL (140-450) Mean Platelet Volume 7.6 fL (6.9-10.8) Neutrophils (%) (Auto) 43.6 % (37.0-80.0) Lymphocytes (%) (Auto) 44.3 % (10.0-50.0) Monocytes (%) (Auto) 8.7 % (0.0-12.0) Eosinophils (%) (Auto) 2.6 % (0.0-7.0) Basophils (%) (Auto) 0.8 % (0.0-2.0) Neutrophils # (Auto) 3.4 10 ^3/uL (1.6-8.6) Lymphocytes # (Auto) 3.4 10 ^3/uL (0.4-5.4) Monocytes # (Auto) 0.7 10 ^3/uL (0-1.3) Eosinophils # (Auto) 0.2 10 ^3/uL (0-0.8) Basophils # (Auto) 0.1 10 ^3/uL (0-0.2) Nucleated Red Blood Cells 0.2 % Sodium Level 138 mmol/L (136-145) Potassium Level 4.4 mmol/L (3.5-5.1) Chloride Level 103 mmol/L (98-107) Carbon Dioxide Level 26 mmol/L (20-31) Anion Gap 9 (5-15) Blood Urea Nitrogen 13 mg/dL (9-23) Creatinine 0.64 mg/dL (0.700-1.30) Glomerular Filtration Rate Calc 108 mL/min (>90) BUN/Creatinine Ratio 20.3 (10.0-20.0) Serum Glucose 102 mg/dL (74-106) Calcium Level 10.3 mg/dL (8.7-10.4) Magnesium Level 2.1 mg/dL (1.6-2.6) Troponin I High Sensitivity 43 ng/L (</=54) Triglycerides Level 471 mg/dL (< 150) Cholesterol Level 147 mg/dL (< 200) LDL Cholesterol mg/dL (< 100) HDL Cholesterol 28 mg/dL (40-59) Free Thyroxine (T4) Calculated 0.96 ng/dL (0.89-1.76) Lactic Acid Level 1.7 mmol/L (0.4-2.0) Test 01/04/25 11:05 Hemoglobin A1c 5.8 % A1C (<5.7) Total Bilirubin 0.5 mg/dL (0.2-1.0) Aspartate Amino Transferase (AST) 33 U/L (13-40) Alanine Aminotransferase (ALT) 51 U/L (7-40) Alkaline Phosphatase 52 U/L (46-116) B-Type Natriuretic Peptide 59.04 pg/mL (0-100) Total Protein 6.9 g/dL (5.7-8.2) Albumin 4.8 g/dL (3.2-4.8) Thyroid Stimulating Hormone (TSH) 1.12 uIU/mL (0.55-4.78) Other Laboratory Tests 01/05/25 06:02 Brief Hx & Hospital Course: This 59 years old male with past medical history RI in 2015 status post PTCA x1, depression, nephritis, but obesity, alcohol abuse, come to emergency department because of chest pain radiated to his left arm and jaw. Chest pain associated with nausea and vomiting. He also complained of headache and diaphoresis. The pain worsening at 9:30 a.m. in the morning. 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 He worked outdoors a lot and work on [employer]. He described his pain is 10/10 heavy and intermittent in nature. The pain had been going on for two weeks on and off. The patient was admitted. Workup was done. Troponin mildly elevated. EKG showed sinus rhythm. Echo showed: Left ventricle was normal-sized. Concentric left ventricular hypertrophy was seen. LVEF was 60-65%. There was no gross wall motion abnormality. Diastolic function was considered normal Right ventricle was normal-sized with normal systolic function. Both atria were normal-sized. Aortic valve was not well visualized. There was no aortic insufficiency/stenosis. There was no mitral regurgitation. There was trace tricuspid regurgitation. Pulmonary valve was not well visualized. As there was no good tricuspid regurgitation jet, right ventricular systolic pressure could not be estimated. There was no pericardial effusion. There was no echocardiographic evidence for pulmonary hypertension. The patient subsequently had a cardiac catheterization done. It showed: Left mainwas coming off the left sinus of Valsalva. No significant lesion in the left main LAD was coming off the left main. There was a stent in proximal to mid LAD with up to 75% in-stent stenosis. Ostial LAD had 75% lesion. IVUS of LAD was performed and revealed MLA of ostial LAD was 3.5 mm (considered significant). There was 90% lesion in apical portion of LAD. 1st diagonal was small-sized vessel with no significant disease. D2 was large vessel with mild diffuse disease. Ramus intermedius was a small to medium-sized vessel which came off the left main. It had mild disease. LCX: LCX was coming off the left main it was a large vessel. It had a 95% ostial lesion. RCA was coming off the right sinus of Valsalva. It was a dominant vessel and provided RPDA. Mid RCA had 75% disease. [facility] recommend transfer to higher level care for open heart surgery, CABG. The patient was accepted to [facility] and will be transferred tonight for further management of his multiple vessel coronary artery disease. Activity as tolerated. Diet low-salt low-cholesterol diet. Physical exam HEENT: Normocephalic atraumatic pupils equal react to light and accommodation. Extraocular muscles intact, conjunctiva pink, oropharynx moist, no thrush, no exudate. Lymphatic: No lymphadenopathy Cardiovascular exam: S1, S2 was heard. No murmurs, rubs, gallops Lung: Clear on auscultation bilaterally, no wheeze, rale, rhonchi. GI: Abdominal soft, nondistended, nontenderness, positive bowel sounds. Extremity: No crepitus, cyanosis, edema. Pedal pulses present bilateral. Full range of motion. Skin: Normal turgor, no rash. Psych: Alert, oriented x3. Neurology: No focal deficits, cranial nerve II to XII grossly intact. This medical document was created using an electronic medical record system with [employer] direct computerized dictation system. Although this document has been carefully reviewed, there may still be some phonetic and typographical errors. These areas are purely typographical due to imperfections of the software programs, and do not reflect any compromise in the patient's medical care. Condition at Discharge: Stable Final Diagnosis/Problems List Multivessel coronary artery disease ,need CABG Chest pain Alcohol abuse Morbid obesity History of RI in 2015 status post PTCA x1 History of depression History of tonsillectomy History of nephritis Discharge Disposition: Acute Care Facility Discharge Instruct/Medications Diet: Cardiac 2g Na,low cholest Activity: No Restrictions, As Tolerated Follow Up/Referral: pcp 1-2 weeks Scheduled Lisinopril (Lisinopril), 1 TAB PO DAILY, (Reported) Discharge Statement: "Patient was advised to return to the ER or call 911 if any headaches, dizziness, shortness of breath, chest pain, abdominal pain, bleeding, fevers, or worsening of medical condition. Patient was counseled about treatment plan, medications, possible side effects, patientverbalized understanding. All questions were answered to the best of my ability. This discharge took greater then 30 minutes in planning, reviewing documentation, counseling the patient, and discussing with other team members." ASSESSMENT ASSESSMENT Assessment CAD need CABG Date of Service: Jan 06, 2025 Billing Provider: BHARAT ABRAHAM MD Common Visit Codes: 72409-HVP/OBS DISCH DAY >30min BHARAT ABRAHAM MD Jan 06, 2025 17:44
--- NOTE | 2025-01-06 22:51 | DVHPN2 ---
Subjective The patient is seen and examined at bedside. Still have chest discomfort. Waiting for cardiac catheterization. Reviewed: Care Plan, H&P, Labs, Medications, Previous Orders, Radiology Cardiovascular: Chest Pain Gastrointestinal: Nausea, Vomiting Objective Vitals Vital Signs Date Time Temp Pulse Resp B/P (MAP) Pulse Ox O2 Delivery O2 Flow Rate FiO2 01/06/25 21:00 97.4 74 18 139/83 (101) 94 97.4 01/06/25 07:40 Room Air* 0 21 Intake/Output Intake and Output 01/06/25 07:00 Intake Total 1625 ml Balance 1625 ml Intake Oral 1625 ml # Voids 6 General Appearance: Alert, Oriented X3, Cooperative, No acute distress HEENT: Atraumatic, EOMI, Mucous membr. moist/pink Neck: Supple Cardiovascular: Regular rate, Normal S1, Normal S2, No murmurs, Gallops, Rubs Abdomen: Normal bowel sounds, Soft, No tenderness Neuro: Cranial nerves 3-12 NL Psych/Mental Status: Mental status NL Medications Current Medications Medications Dose Ordered Sig/[place] Route Start Time Stop Time Status Last Admin Dose Admin Aspirin 81 mg DAILY PO 01/04/25 12:18 01/06/25 10:36 81 MG Atorvastatin Calcium 40 mg HS PO 01/04/25 22:00 01/05/25 21:20 40 MG Morphine Sulfate 2 mg Q30MP PRN IV 01/04/25 12:15 Acetaminophen 650 mg Q6HP PRN PO 01/04/25 12:15 Nitroglycerin 0.4 mg Q5MINP PRN SL 01/04/25 12:15 Ondansetron HCl 4 mg Q4HP PRN IV 01/04/25 12:15 Lisinopril 20 mg DAILY PO 01/05/25 10:00 01/06/25 10:36 20 MG Enoxaparin Sodium 1 mg BID SC 01/05/25 10:00 UNV Enoxaparin Sodium 110 mg BID SC 01/05/25 10:00 01/05/25 21:22 110 MG Laboratory Results Laboratory Tests 01/05/25 06:02 Coagulation Test 01/06/25 02:12 Prothrombin Time 10.4 sec (9.3-11.8) Prothrombin Time INR 0.98 (0.9-1.15) Activated Partial Thromboplast Time 28.3 SEC (24.5-34.5) Assessment/Plan Assessment/Plan Chest pain rule out ACS Alcohol use Morbid obesity History of [place] in 2015 status post PTCA x1 History of depression History of tonsillectomy History of nephritis Continuing current management. Waiting for cardiac catheterization to be done. Continuing with IV morphine and [place] for pain control. This medical document was created using an electronic medical record system with [employer] direct computerized dictation system. Although this document has been carefully reviewed, there may still be some phonetic and typographical errors. These areas are purely typographical due to imperfections of the software programs, and do not reflect any compromise in the patient's medical care. My Orders Orders - BHARAT ABRAHAM MD Procedure Category Date Status Time Discharge DISCHARGE 01/06/25 Transmitted 17:41 BHARAT ABRAHAM MD Jan 06, 2025 22:50
[2025-01-07 01:00] VITALS: BP 129/52; PULSE 66; RESP 19; TEMP 97.8; O2SAT 94
== END 2025-01-07 00:40 | disposition short-term general hospital (02) | DRG 281 ==
LOC: ER 10:25 → OVERFLOW 12:10 → TELE-WESTW 15:26
PROVIDERS: ADMIT Internal Medicine; ATTEND Internal Medicine
PROC: 4A023N7 Measurement of Cardiac Sampling and Pressure, Left Heart, Percutaneous Approach (ICD-10-PCS; principal; 2025-01-06)
PROC: B211YZZ Fluoroscopy of Multiple Coronary Arteries using Other Contrast (ICD-10-PCS; 2025-01-06)
PROC: B215YZZ Fluoroscopy of Left Heart using Other Contrast (ICD-10-PCS; 2025-01-06)
PROC: B240ZZ3 Ultrasonography of Single Coronary Artery, Intravascular (ICD-10-PCS; 2025-01-06)
DX: I21.4 Non-ST elevation (NSTEMI) myocardial infarction (principal); T82.855A Stenosis of coronary artery stent, initial encounter; Z68.25 Body mass index [BMI] 25.0-25.9, adult; E11.9 Type 2 diabetes mellitus without complications; E66.01 Morbid (severe) obesity due to excess calories; F32.A Depression, unspecified; I11.9 Hypertensive heart disease without heart failure; F10.10 Alcohol abuse, uncomplicated; I25.118 Atherosclerotic heart disease of native coronary artery with other forms of angina pectoris; E78.5 Hyperlipidemia, unspecified; K21.9 Gastro-esophageal reflux disease without esophagitis; Z79.82 Long term (current) use of aspirin; Z79.899 Other long term (current) drug therapy; Z87.891 Personal history of nicotine dependence; Z82.49 Family history of ischemic heart disease and other diseases of the circulatory system; Y90.9 Presence of alcohol in blood, level not specified; Y83.1 Surgical operation with implant of artificial internal device as the cause of abnormal reaction of the patient, or of later complication, without mention of misadventure at the time of the procedure
CPT/HCPCS: 36415; 71045; 80048; 80053; 80061; 83036; 83605; 83735; 83880; 84439; 84443; 84484; 85025; 85610; 85730; 86850; 86900; 86901; 93005; 93306; 99152; C1887; G0378; J2250; Q9967